=== PATIENT | male | born 1980 ===

== ENCOUNTER 2017-04-26 17:41 | Emergency (ER) | payer SELFPAY ==
[2017-04-26 17:50] VITALS: BP 140/89
[2017-04-26] MEDS ORDERED: Fluorescein Sod TOPICAL 0.6* 0.6 MG TEST OPHTHALMIC ONE (17:56)
[2017-04-26] MEDS ORDERED: Tetracaine 0.5% OPTH.SOL 4 ML* 1 DROP BTL ONE (17:56)
--- NOTE | 2017-04-26 18:04 | ED ---
Throat Pain/Nasal Congestion - HPI Summary HPI Summary: 36-year-old male presents with foreign body in left eye. He states glue squirted into his eye. He states that it is stuck there. He tried flushing his eye. He denies any change in vision. He denies any drainage from his eye. He states this happened 45 minutes before. He states his eyelid is not stuck. He wears glasses. He states his eye feels irritated. He has no medical conditions. - History of Current Complaint Chief Complaint: UCEye Time Seen by Provider: 04/26/17 17:56 - Allergies/Home Medications Allergies/Adverse Reactions: Allergies Allergy/AdvReac Type Severity Reaction Status Date / Time amoxicillin Allergy Hives Verified 04/26/17 17:50 Home Medications: Home Medications NK [No Home Medications Reported] 04/26/17 [History Confirmed 04/26/17] PMH/Surg Hx/FS Hx/Imm Hx Endocrine/Hematology History: Denies: Hx Diabetes, Hx Thyroid Disease Cardiovascular History: Denies: Hx Hypertension Respiratory History: Denies: Hx Asthma, Hx Chronic Obstructive Pulmonary Disease (COPD) GI History: Denies: Hx Ulcer Infectious Disease History: No Infectious Disease History: Denies: Hx Hepatitis, Hx Human Immunodeficiency Virus (HIV), Traveled Outside the [place] in Last 30 Days - Family History Known Family History: Positive: Hypertension - Social History Alcohol Use: Daily Substance Use Type: Reports: None Smoking Status (MU): Former Smoker Review of Systems Negative: Fever Positive: Erythema, Other - foreign body left eye Negative: Chest Pain Negative: Shortness Of Breath All Other Systems Reviewed And Are Negative: Yes Physical Exam Triage Information Reviewed: Yes Vital Signs On Initial Exam: Initial Vitals Temp Pulse Resp BP Pulse Ox 97.6 F 89 18 140/89 96 04/26/17 17:44 04/26/17 17:44 04/26/17 17:44 04/26/17 17:44 04/26/17 17:44 Vital Signs Reviewed: Yes Appearance: Positive: Well-Appearing Skin: Positive: Warm, Dry Head/Face: Positive: Normal Head/Face Inspection Eyes: Positive: EOMI, CLAUS, Conjunctiva Inflammed - left eye, Other: - glue seen on left eye conjunctiva. no uptake fluorscein of cornea on aggarwal lamp exam ENT: Positive: Normal ENT inspection, Pharynx normal, TMs normal Respiratory/Lung Sounds: Positive: Clear to Auscultation, Breath Sounds Present Cardiovascular: Positive: Normal, RRR Musculoskeletal: Positive: Normal Neurological: Positive: Normal Psychiatric: Positive: Normal Procedures - Eye Procedure Alcaine Drops Administered: Yes - foreign body on fluorescein of left conjunctiva, no corneal abrasion Diagnostics - Vital Signs Vital Signs Temp Pulse Resp BP Pulse Ox 04/26/17 17:44 97.6 F 89 18 140/89 96 - Laboratory Lab Statement: Any lab studies that have been ordered have been reviewed, and results considered in the medical decision making process. EENT Course/Dx - Course Course Of Treatment: 36-year-old male presents with foreign body in left eye. He states glue squirted into his eye. He states that it is stuck there. He tried flushing his eye. He denies any change in vision. He denies any drainage from his eye. He states this happened 45 minutes before. He states his eyelid is not stuck. He wears glasses. He states his eye feels irritated. He has no medical conditions. on exam left conjunctiva injected. on flourscein exam foreign body seen on inner conjunctiva. did jose lens for left eye. will use polytrim to prevent infection. told will take time for glue to dissolve on its own. will have follow up with primary about blood pressure as is elevated at this visit. patient understand and agrees with plan. - Differential Diagnoses Differential Diagnoses: Conjunctivitis, Corneal Abrasion, Foreign Body - Diagnoses Provider Diagnoses: Foreign body of left eye Discharge - Discharge Plan Condition: Good Disposition: HOME Patient Education Materials: Eye Foreign Body (ED) Referrals: Yohan Garcia MD [Primary Care Provider] - Terry Burciaga MD [Medical Doctor] - Additional Instructions: Place 1 drop in eye 4 times a day for 5 days Use artificial tears or saline to rinse eye for symptomatic relief Take Tylenol or ibuprofen for pain Follow up with ophthalmology if no improvement in 5 days Return to ED if develop any new or worsening symptoms
== END 2017-04-26 18:50 | disposition home or self-care (01) ==
LOC: UCEAST 17:41
DX: T15.92XA Foreign body on external eye, part unspecified, left eye, initial encounter (principal); X58.XXXA Exposure to other specified factors, initial encounter; Y92.9 Unspecified place or not applicable; Z88.3 Allergy status to other anti-infective agents; Z87.891 Personal history of nicotine dependence
CPT/HCPCS: 99202; A9270-GY; G0463